=== PATIENT | male | born 1960 | race Hispanic/Latino ===

== ENCOUNTER 2019-11-02 22:15 | Observation (INO) | payer OTHER ==
--- NOTE | 2019-11-02 22:20 | Emergency Department Report ---
HPI - General Time Seen by Provider: 11/02/19 22:18 - HPI HPI: Charge nurse triage --> 21 The patient is a 59-year-old male present with a chief complaint of left-sided numbness and weakness. The patient states that 20: 00 he was at rest when he developed numbness in the left upper extremity. The patient states he got up and shook his arm and the symptoms resolved. The patient states at 21: 00 the numbness in the left arm returned in addition to numbness in the left face and left lower extremity. Patient states he had difficulty raising his left arm above his head ED Past Medical Hx - Past Medical History Hx Hypertension: Yes (No meds) - Surgical History Past Surgical History?: No - Family History Family history: no significant - Social History Smoking Status: Current Every Day Smoker Substance Use Type: None (Denies illicit drug use), Alcohol ED Review of Systems ROS: Stated complaint: POSS STROKE Other details as noted in HPI Constitutional: no symptoms reported Eyes: denies: eye pain ENT: denies: throat pain Respiratory: no symptoms reported Cardiovascular: denies: chest pain Endocrine: no symptoms reported Gastrointestinal: denies: nausea, vomiting Musculoskeletal: denies: back pain Neurological: weakness, numbness. denies: headache Physical Exam - Physical Exam Physical Exam: GENERAL: The patient is well-developed well-nourished male lying on stretcher not appearing to be in acute distress. [] HEENT: Normocephalic. Atraumatic. Extraocular motions are intact. Patient has moist mucous membranes. NECK: Supple. Trachea midline CHEST/LUNGS: There is no respiratory distress noted. HEART/CARDIOVASCULAR: Regular. There is no tachycardia. There is no gallop rub or murmur. ABDOMEN: Abdomen is soft, nontender. Patient has normal bowel sounds. There is no abdominal distention. SKIN: There is no rash. There is no edema. There is no diaphoresis. NEURO: The patient is awake, alert, and oriented. The patient is cooperative. Cranial nerves II through XII grossly intact. The patient has normal speech MUSCULOSKELETAL: There is no evidence of acute injury. ED Course - Consultations Consultation #1: 11/02/19 22:33 Case discussed with [id number] admission to the hospital for CVA/TIA work-up. Does not recommend TPA or CT angiogram ED Medical Decision Making - Lab Data Result diagrams: 11/02/19 22:33 11/02/19 22:33 Laboratory Tests 11/02/19 11/02/19 11/02/19 22:33 22:33 22:33 WBC 8.0 RBC 5.23 H Hgb 16.4 H Hct 48.5 H MCV 93 MCH 31 MCHC 34 RDW 13.9 Plt Count 292 Lymph % (Auto) 47.3 H Petroleum % (Auto) 7.9 H Eos % (Auto) 2.5 Baso % (Auto) 1.0 Lymph # 3.8 Petroleum # 0.6 Eos # 0.2 Baso # 0.1 Seg Neutrophils % 41.3 Seg Neutrophils # 3.3 PT 12.2 INR 0.90 APTT 25.9 Thrombin Time Sodium 142 Potassium 4.7 Chloride 103.0 Carbon Dioxide 27 Anion Gap 17 BUN 12 Creatinine 1.1 Estimated GFR > 60 BUN/Creatinine Ratio 11 Glucose 109 H Calcium 9.3 Troponin T < 0.010 11/02/19 22:33 WBC RBC Hgb Hct MCV MCH MCHC RDW Plt Count Lymph % (Auto) Petroleum % (Auto) Eos % (Auto) Baso % (Auto) Lymph # Petroleum # Eos # Baso # Seg Neutrophils % Seg Neutrophils # PT INR APTT Thrombin Time 16.5 Sodium Potassium Chloride Carbon Dioxide Anion Gap BUN Creatinine Estimated GFR BUN/Creatinine Ratio Glucose Calcium Troponin T - EKG Data -: EKG Interpreted by Me EKG shows normal: sinus rhythm Rate: normal - EKG Data When compared to previous EKG there are: previous EKG unavailable Interpretation: other (No ischemic changes seen) - Radiology Data Radiology results: report reviewed (CT head) CT head (read by radiologist)-no acute intracranial abnormality - Differential Diagnosis CVA Critical care attestation.: If time is entered above; I have spent that time in minutes in the direct care of this critically ill patient, excluding procedure time. ED Disposition Clinical Impression: TIA (transient ischemic attack) Disposition: [id number] OP ADMIT IP TO THIS HOSP Is pt being admited?: Yes Does the pt Need Aspirin: Yes Condition: Fair Referrals: PRIMARY CARE, [Primary Care Provider] - 3-5 Days Time of Disposition: 23:37 (Hospitalist paged (Dr Quesada))
[2019-11-02] MEDS ORDERED: cloNIDine 0.2 MG TAB PO ONE (22:36)
--- NOTE | 2019-11-02 22:38 | Cat Scan Report ---
CT head/brain wo con INDICATION / CLINICAL INFORMATION: MAIN: STROKE ALERT. LT ARM WEAKNESS. [phone]. TECHNIQUE: All CT scans at this location are performed using CT dose reduction for ALARA by means of automated e xposure control. COMPARISON: None available. FINDINGS: No acute intracranial hemorrhage or abnormal extra-axial fluid collection. No evidence of territorial infarction or mass effect. The ventricular system and basilar cisterns are normal. A small retention cyst is seen in the floor the left maxillary sinus. No bony abnormalities. IMPRESSION: 1. No acute intracranial abnormality. COMMUNICATION: Time of Communication: 2131 hours Licensed Practitioner Receiving Report: Signer Name: León Ardon MD Signed: 11/02/2019 10:34 PM Workstation Name: [id number]
[2019-11-02] MEDS ORDERED: ASPIRIN 325 MG TAB PO ONE (22:40)
[2019-11-02 23:10] LABS: Basophils # (Auto) 0.1 K/mm3 (0.0-0.1); Eosinophils # (Auto) 0.2 K/mm3 (0.0-0.4); Eosinophils % (Auto) 2.5 % (0.0-4.3); Hematocrit 48.5 % (35.5-45.6); Hemoglobin 16.4 gm/dl (11.8-15.2); Lymphocytes # (Auto) 3.8 K/mm3 (1.2-5.4); Lymphocytes % (Auto) 47.3 % (13.4-35.0); Mean Corpuscular HGB Conc 34 % (32-34); Mean Corpuscular Volume 93 fl (84-94); Monocytes # (Auto) 0.6 K/mm3 (0.0-0.8); Monocytes % (Auto) 7.9 % (0.0-7.3); Platelet Count 292 K/mm3 (140-440); Red Blood Count 5.23 M/mm3 (3.65-5.03); Red Cell Distribution Width 13.9 % (13.2-15.2)
[2019-11-02 23:25] LABS: BUN/Creatinine Ratio 11; Blood Urea Nitrogen 12 mg/dL (9-20); Calcium 9.3 mg/dL (8.4-10.2); Hemolysis Index 13
[2019-11-02 23:32] LABS: INR 0.9 (0.87-1.13)
[2019-11-02 23:33] LABS: Partial Thromboplastin Time 25.9 Sec. (24.2-36.6)
--- NOTE | 2019-11-02 23:58 | Emergency Department Report ---
ED Neuro Deficit HPI - General Chief Complaint: Neuro Symptoms/Deficit Stated Complaint: POSS STROKE Time Seen by Provider: 11/02/19 22:18 Source: EMS Mode of arrival: Ambulatory Limitations: No Limitations - History of Present Illness Initial Comments: [facility] Date of Service: 11/02/2019 22:06:24 Impression: RO Acute Ischemic Stroke Comments: acute, transient L sided numbness/weakness - concerning for right frontal vs subcortical TIA. Recommend admission for stroke workup. Mechanism of Stroke: Possible Thromboembolic Possible Cardioembolic Small Vessel Disease Metrics: Last Known Well: 11/02/2019 20:30:00 [facility] Notification Time: 11/02/2019 22:05:43 Arrival Time: 11/02/2019 22:15:00 Stamp Time: 11/02/2019 22:06:24 Time First Login Attempt: 11/02/2019 22:14:31 Video Start Time: 11/02/2019 22:14:31 Symptoms: L sided numbness NIHSS Start Assessment Time: 11/02/2019 22:26:53 Patient is not a candidate for tPA. Patient was not deemed candidate for tPA thrombolytics because of Resolved symptoms. Video End Time: 11/02/2019 22:32:24 CT head showed no acute hemorrhage or acute core infarct. CT head was reviewed. Clinical Presentation is not Suggestive of Large Vessel Occlusive Disease, Patient is not a Candidate for Thrombectomy ED Physician notified of diagnostic impression and management plan on 11/02/2019 22:33:04 Our recommendations are outlined below. Recommendations: Activate Stroke Protocol Admission/Order Set Stroke/Telemetry Floor Neuro Checks Bedside Swallow Eval DVT Prophylaxis IV Fluids, Normal Saline Head of Bed Below 30 Degrees Euglycemia and Avoid Hyperthermia (PRN Acetaminophen) start ASA if CT head is neg for hemorrhage. Recommended Scan: MRI Head MRA Head and Neck Without Contrast When Available - Stroke Protocol Lipid Panel to Be Obtained, if Not Done in the Last Three Months Therapies: Physical Therapy, Occupational Therapy, Speech Therapy Assessment When Applicable Dysphaghia Screen: Swallow Evaluation, Bedside NPO Until Swallow Evaluation DVT prophylaxis: Lovenox or LMW Heparin Disposition: Follow up with Teleneurology Follow up Sign Out: Discussed with Emergency Department Provider History of Present Illness: Patient is a 59 year old Male. Patient was brought by EMS for symptoms of L sided numbness 59 yo man with acute onset L face/arm/leg numbness starting at approx 2030. He notes that his left arm was slightly weak, but it is currently improved. He also describes slurred speech, which is improved. No blood thinners. CT head showed no acute hemorrhage or acute core infarct. CT head was reviewed. Examination: 1A: Level of Consciousness - Alert; keenly responsive + 0 1B: Ask Month and Age - Both Questions Right + 0 1C: Blink Eyes & Squeeze Hands - Performs Both Tasks + 0 2: Test Horizontal Extraocular Movements - Normal + 0 3: Test Visual Cosme - No Visual Loss + 0 4: Test Facial Palsy (Use Grimace if Obtunded) - Minor paralysis (flat nasolabial fold, smile asymmetry) + 1 5A: Test Left Arm Motor Drift - No Drift for 10 Seconds + 0 5B: Test Right Arm Motor Drift - No Drift for 10 Seconds + 0 6A: Test Left Leg Motor Drift - No Drift for 5 Seconds + 0 6B: Test Right Leg Motor Drift - No Drift for 5 Seconds + 0 7: Test Limb Ataxia (FNF/Heel-Hyatt) - No Ataxia + 0 8: Test Sensation - Normal; No sensory loss + 0 9: Test Language/Aphasia - Normal; No aphasia + 0 10: Test Dysarthria - Normal + 0 11: Test Extinction/Inattention - No abnormality + 0 NIHSS Score: 1 Patient was informed the Neurology Consult would happen via TeleHealth consult by way of interactive audio and video telecommunications and consented to receiving care in this manner. Due to the immediate potential for life-threatening deterioration due to underlying acute neurologic illness, I spent 35 minutes providing critical care. This time includes time for face to face visit via telemedicine, review of medical records, imaging studies and discussion of findings with providers, the patient and/or family. Dr Delon Morel [facility] Case [id number] - Related Data Allergies/Adverse Reactions: Allergies Allergy/AdvReac Type Severity Reaction Status Date / Time Unable to Assess Allergy Unverified 11/02/19 22:17 ED Review of Systems ROS: Stated complaint: POSS STROKE Other details as noted in HPI Constitutional: no symptoms reported Eyes: denies: eye pain ENT: denies: throat pain Respiratory: no symptoms reported Cardiovascular: denies: chest pain Endocrine: no symptoms reported Gastrointestinal: denies: nausea, vomiting Musculoskeletal: denies: back pain Neurological: weakness, numbness. denies: headache ED Past Medical Hx - Past Medical History Hx Hypertension: Yes (No meds) - Surgical History Past Surgical History?: No - Social History Smoking Status: Current Every Day Smoker Substance Use Type: None (Denies illicit drug use), Alcohol ED Neuro Physical Exam - General Limitations: No Limitations Suspected Stroke: Yes - NIHSS Assessment Interval: Baseline 1a. Level of Consciousness: alert/keenly responsive 1b. LOC Questions: answers both correctly 1c. LOC Commands: performs tasks correctly 2. Best Gaze: normal 3. Visual: no visual loss 4. Facial Palsy: minor paralysis 5b. Motor Arm Right: no drift 5a. Motor Arm Left: no drift 6a. Motor Leg Left: no drift 6b. Motor Leg Right: no drift 7. Limb Ataxia: absent 8. Sensory: normal 9. Best Language: no aphasia 10. Dysarthria: normal 11. Extinction/Inattention: no abnormality Total Score: 1 Stroke Severity: Minor Stroke ED Course Vital Signs 11/02/19 11/02/19 22:41 22:48 Temperature 98 F Pulse Rate 80 83 Respiratory 14 Rate Blood Pressure 199/98 Blood Pressure 221/121 [Left] O2 Sat by Pulse 98 Oximetry - Lab Data Result diagrams: 11/02/19 22:33 11/02/19 22:33 Lab Results 11/02/19 11/02/19 11/02/19 Range/Units 22:33 22:33 22:33 WBC 8.0 (4.5-11.0) K/mm3 RBC 5.23 H (3.65-5.03) M/mm3 Hgb 16.4 H (11.8-15.2) gm/dl Hct 48.5 H (35.5-45.6) % MCV 93 (84-94) fl MCH 31 (28-32) pg MCHC 34 (32-34) % RDW 13.9 (13.2-15.2) % Plt Count 292 (140-440) K/mm3 Lymph % (Auto) 47.3 H (13.4-35.0) % Braxton % (Auto) 7.9 H (0.0-7.3) % Eos % (Auto) 2.5 (0.0-4.3) % Baso % (Auto) 1.0 (0.0-1.8) % Lymph # 3.8 (1.2-5.4) K/mm3 Braxton # 0.6 (0.0-0.8) K/mm3 Eos # 0.2 (0.0-0.4) K/mm3 Baso # 0.1 (0.0-0.1) K/mm3 Seg Neutrophils % 41.3 (40.0-70.0) % Seg Neutrophils # 3.3 (1.8-7.7) K/mm3 PT 12.2 (12.2-14.9) Sec. INR 0.90 (0.87-1.13) APTT 25.9 (24.2-36.6) Sec. Thrombin Time (15.1-19.6) Sec. Sodium 142 (137-145) mmol/L Potassium 4.7 (3.6-5.0) mmol/L Chloride 103.0 (98-107) mmol/L Carbon Dioxide 27 (22-30) mmol/L Anion Gap 17 mmol/L BUN 12 (9-20) mg/dL Creatinine 1.1 (0.8-1.5) mg/dL Estimated GFR > 60 ml/min BUN/Creatinine Ratio 11 % Glucose 109 H (75-100) mg/dL Calcium 9.3 (8.4-10.2) mg/dL Troponin T < 0.010 (0.00-0.029) ng/mL 11/02/19 Range/Units 22:33 WBC (4.5-11.0) K/mm3 RBC (3.65-5.03) M/mm3 Hgb (11.8-15.2) gm/dl Hct (35.5-45.6) % MCV (84-94) fl MCH (28-32) pg MCHC (32-34) % RDW (13.2-15.2) % Plt Count (140-440) K/mm3 Lymph % (Auto) (13.4-35.0) % Braxton % (Auto) (0.0-7.3) % Eos % (Auto) (0.0-4.3) % Baso % (Auto) (0.0-1.8) % Lymph # (1.2-5.4) K/mm3 Braxton # (0.0-0.8) K/mm3 Eos # (0.0-0.4) K/mm3 Baso # (0.0-0.1) K/mm3 Seg Neutrophils % (40.0-70.0) % Seg Neutrophils # (1.8-7.7) K/mm3 PT (12.2-14.9) Sec. INR (0.87-1.13) APTT (24.2-36.6) Sec. Thrombin Time 16.5 (15.1-19.6) Sec. Sodium (137-145) mmol/L Potassium (3.6-5.0) mmol/L Chloride (98-107) mmol/L Carbon Dioxide (22-30) mmol/L Anion Gap mmol/L BUN (9-20) mg/dL Creatinine (0.8-1.5) mg/dL Estimated GFR ml/min BUN/Creatinine Ratio % Glucose (75-100) mg/dL Calcium (8.4-10.2) mg/dL Troponin T (0.00-0.029) ng/mL Critical care attestation.: If time is entered above; I have spent that time in minutes in the direct care of this critically ill patient, excluding procedure time. ED Disposition Clinical Impression: TIA (transient ischemic attack) Disposition: OP ADMIT IP TO THIS HOSP Is pt being admited?: Yes Condition: Fair Referrals: PRIMARY CARE, [Primary Care Provider] - 3-5 Days
[2019-11-03] MEDS ORDERED: METOCLOPRAMIDE 10 MG TAB PO PRN (00:44)
[2019-11-03] MEDS ORDERED: PROMETHAZINE 25 MG RECT SUPP PR PRN (00:44)
[2019-11-03] MEDS ORDERED: ONDANSETRON 4 MG/2 ML INJ IV PRN ×2 (00:44)
[2019-11-03] MEDS ORDERED: MORPHINE 2 MG/1 ML INJ IV PRN ×2 (00:44)
[2019-11-03] MEDS ORDERED: ACETAMINOPHEN 325 MG TAB PO PRN ×2 (00:44)
[2019-11-03] MEDS ORDERED: MAGNESIUM HYDROXIDE (MOM) ORAL LIQD UDC PO PRN ×2 (00:44)
--- NOTE | 2019-11-03 02:17 | History and Physical Report ---
History of Present Illness Date of examination: 11/03/19 Date of admission: 11/02/19 23:39 Chief complaint: Left sided weakness History of present illness: 59-year-old male with known history of hypertension presenting to the emergency room today complaining of left upper left lower extremity weakness and numbness which started earlier today. Patient states that was lying down when he started having some numbness and weakness in the left upper extremity and left lower extremity. He got up and shook his hand and leg and felt relieved. He denies any headache or dizziness, no blurry vision, no difficulty with speech or swallowing, no fever or chills. No nausea or vomiting. He however admits that he has not been quite compliant with his blood pressure medication. He also admits that he drinks alcohol daily and also smokes about a pack of cigarette daily. He has not had this type of symptom in the past. He also noticed a mild facial asymmetry today. Work-up in the emergency room including CT scan of the head did not reveal any acute abnormality. He was evaluated by the teleneurologist and was determined not to be a TPA candidate. However patient is to be admitted for further work- up for possible CVA. Past History Past Medical History: hypertension Past Surgical History: No surgical history Social history: smoking (One pack per day), alcohol abuse (6 beers daily) Family history: no significant family history Medications and Allergies Allergies Allergy/AdvReac Type Severity Reaction Status Date / Time Unable to Assess Allergy Unverified 11/02/19 22:17 Active Meds: Active Medications Acetaminophen (Tylenol) 650 mg PO Q4H PRN PRN Reason: Pain MILD(1-3)/Fever >100.5/CHO Aspirin (Aspirin) 325 mg PO QDAY CARYN Bisacodyl (Dulcolax) 10 mg NH QDAY PRN PRN Reason: Constipation Magnesium Hydroxide (Milk Of Magnesia) 30 ml PO Q4H PRN PRN Reason: Constipation Metoclopramide HCl (Reglan) 10 mg PO Q6H PRN PRN Reason: Nausea And Vomiting Morphine Sulfate (Morphine) 2 mg IV Q4H PRN PRN Reason: Pain, Moderate (4-6) Ondansetron HCl (Zofran) 4 mg IV Q8H PRN PRN Reason: Nausea And Vomiting Promethazine HCl (Phenergan) 25 mg NH Q6H PRN PRN Reason: Nausea And Vomiting Sodium Chloride (Sodium Chloride Flush Syringe 10 Ml) 10 ml IV BID CARYN Sodium Chloride (Sodium Chloride Flush Syringe 10 Ml) 10 ml IV PRN PRN PRN Reason: LINE FLUSH Review of Systems Constitutional: no fever, no chills Cardiovascular: no chest pain, no syncope Respiratory: no cough, no shortness of breath Gastrointestinal: no nausea, no vomiting, no diarrhea Genitourinary Male: no dysuria, no hematuria Musculoskeletal: no neck pain, no low back pain Integumentary: no rash, no pruritis Neurological: weakness, numbness (On left upper and lower extremity), no headaches, no change in mentation Exam - Constitutional Vitals: Temp Pulse Resp BP Pulse Ox 98 F 71 14 167/95 97 11/02/19 22:41 11/02/19 23:45 11/02/19 23:45 11/02/19 23:45 11/02/19 23:45 General appearance: Present: no acute distress, well-nourished - EENT Eyes: Present: PERRL, EOM intact ENT: hearing intact, clear oral mucosa, dentition normal - Neck Neck: Present: supple, normal ROM - Respiratory Respiratory effort: normal Respiratory: bilateral: CTA - Cardiovascular Rhythm: regular Heart Sounds: Present: S1 & S2 - Extremities Extremities: no ischemia, pulses intact, No edema, Full ROM Peripheral Pulses: within normal limits - Abdominal General gastrointestinal: Present: soft, non-tender, non-distended - Integumentary Integumentary: Present: clear, warm, dry - Musculoskeletal Musculoskeletal: strength equal bilaterally - Psychiatric Psychiatric: appropriate mood/affect, intact judgment & insight, cooperative - Neurologic Neurologic: CNII-XII intact, moves all extremities (Mild weakness on the left upper and left lower extremity), other (Mild facial asymmetry with left-sided facial droop.) Results - Labs CBC & Chem 7: 11/02/19 22:33 11/02/19 22:33 Labs: Abnormal lab results 11/02/19 11/02/19 Range/Units 22:33 22:33 RBC 5.23 H (3.65-5.03) M/mm3 Hgb 16.4 H (11.8-15.2) gm/dl Hct 48.5 H (35.5-45.6) % Lymph % (Auto) 47.3 H (13.4-35.0) % [place]ug[place] % (Auto) 7.9 H (0.0-7.3) % Glucose 109 H (75-100) mg/dL Assessment and Plan - Patient Problems (1) TIA (transient ischemic attack) Current Visit: Yes Status: Acute Plan to address problem: Patient admitted and will be worked up for CVA. Will start patient on daily aspirin. Patient will be scheduled for carotid Doppler and MRI of the brain. We will place consult to neurology for further evaluation and recommendation. (2) Hypertension Current Visit: Yes Status: Acute Plan to address problem: We will resume routine home medications once reconciled monitor vital signs closely. (3) Tobacco abuse Current Visit: Yes Status: Acute Plan to address problem: Counseled on quitting tobacco use. We will offer nicotine patch as needed. (4) Alcohol abuse Current Visit: Yes Status: Acute Plan to address problem: Counseled on quitting alcohol abuse. Patient will be closely monitored for alcohol withdrawal symptoms. (5) DVT prophylaxis Current Visit: Yes Status: Acute Plan to address problem: Placed on subcutaneous heparin. (6) Full code status Current Visit: Yes Status: Acute
[2019-11-03] MEDS: HEPARIN 5,000 UNIT/1 ML VIAL SUB-Q SCH ×2 (06:19→13:58)
[2019-11-03] MEDS ORDERED: hydrALAZINE 20 MG/1 ML INJ IV PRN (06:21)
[2019-11-03] MEDS ORDERED: LORazepam 2 MG/ML VIAL IV NR (09:37)
--- NOTE | 2019-11-03 09:44 | Vascular Lab Report ---
TECHNICAL DATA: Imaging was performed from the base of the neck to the skull base using duplex sonography and color-f low imaging with emphasis on the carotid and vertebral arterial systems. RIGHT CAROTID ARTERY: The right internal carotid artery, right external carotid, and right common carotid artery all well i inocencia and patent. Mild atherosclerotic plaque present at the carotid bifurcation. Right common carotid artery peak systolic velocity 83.6 centimeters per second Right internal carotid artery peak systolic velocity 87.4 cm/sec Right internal carotid artery end diastolic velocity 36.6 cm/sec Right internal carotid artery/right common carotid artery ratio 1.05 Vertebral artery flow is antegrade. LEFT CAROTID ARTERY The left internal carotid artery, left external carotid, and left common carotid artery all well imag ed and patent. Mild atherosclerotic plaque present at the carotid bifurcation. Left common carotid artery peak systolic velocity 66.8 cm/sec Left internal carotid artery peak systolic velocity 75.7 cm/s Left internal carotid artery end diastolic velocity 22.6 cm/s Left internal carotid artery/right common carotid artery ratio 1.13 Normal antegrade flow of the vertebral arteries. IMPRESSION: 1. A 0 to15% diameter reduction internal carotid arteries. 2. Normal common carotid arteries. 3. Normal external carotid arteries. 4. Antegrade flow both vertebral arteries. Sonographic NASCET Index This study proposed the incorporation of distal ICA flow velocity information on the conventional car otid Doppler study improving the diagnostic accuracy of PSV 1. * <15% stenosis: * deceleration spectral broadening with a peak systolic velocity (PSV) <125 cm per second * 16-49% stenosis: * pansystolic spectral broadening with a PSV <125 cm/s * 50-69% stenosis: * pansystolic spectral broadening with a PSV of >125 cm/s * and * end diastolic velocity (EDV) <110 cm/s or ICA/CCA PSV ratio >2 but <4 * 70-79% stenosis: * pansystolic spectral broadening with PSV >270 cm/s * or * EDV >110 cm/s * or * ICA/CCA PSV ratio >4 * 80-99% stenosis: EDV >140 cm/s * complete occlusion: no flow; terminal thump Signer Name: Tim Marshall MD Signed: 11/03/2019 9:39 AM Workstation Name: [id number]
[2019-11-03] MEDS ORDERED: ASPIRIN 325 MG TAB PO SCH (10:00)
[2019-11-03] MEDS ORDERED: LORazepam 2 MG/ML VIAL IV ONE (14:00)
--- NOTE | 2019-11-03 15:58 | Magnetic Resonance Report ---
MRI BRAIN WITHOUT CONTRAST INDICATION / CLINICAL INFORMATION: stroke. Left-sided weakness TECHNIQUE: Multiplanar, multisequence MR images of the brain were obtained. COMPARISON: Head CT 11/02/2019 FINDINGS: BRAIN / INTRACRANIAL CONTENTS: There is a 10 x 15 mm diameter area of restricted diffusion in the right richter radiata compatible wi th subacute infarction. Correlating decreased signal intensity is seen on ADC map images. Subtle hype rintensities observed in this same distribution on FLAIR and T2-weighted sequences. There is no indic ation of hemorrhagic transformation. Ventricles and cortical sulci are normal in size and configuration. There is no mass effect. No evide nce of intracranial hemorrhage or extra-axial fluid collection is seen. Periventricular and deep whit e matter hyperintensities are noted consistent with microvascular ischemic changes. Fairly extensivel y dilated perivascular spaces are noted. These are present in a ganglia capsular distribution as well as within the white matter of both cerebral hemispheres. The brainstem and cerebellum have an unremarkable appearance. CRANIOCERVICAL JUNCTION: No abnormalities are identified at the craniocervical junction. VASCULAR FLOW-VOIDS: Normal flow-voids are present within the major intracranial vessels. ORBITS: The orbits have an unremarkable appearance. SINUSES / MASTOIDS: There is no indication of inflammatory disease in the paranasal sinuses. Inflamma tory changes are seen within the air cells the right mastoid tip. IMPRESSION: 1. Subacute, small deep infarction involving the right richter radiata. Signer Name: Azam Deleon MD Signed: 11/03/2019 3:54 PM Workstation Name: [id number]
--- NOTE | 2019-11-03 16:44 | Discharge Summary ---
Providers - Providers Date of Admission: 11/02/19 23:39 Date of discharge: 11/03/19 Attending physician: RICKEY MURILLO 11/03/19 00:44 Consult to Dietitian/Nutrition [CONS] Routine Physician Instructions: Reason For Exam: Reason for Consult: Nutrition Recommendations Reason for Consult: Diet education Consult to Physician [CONS] Routine Comment: Consulting Provider: KEYSHA HERRING Physician Instructions: Reason For Exam: left sided weakness Occupational Therapy Evaluate and Treat [CONS] Routine Comment: Reason For Exam: Neuro deficits Physical Therapy Evaluation and Treat [CONS] Routine Comment: Reason For Exam: Neuro deficits Primary care physician: RN BURN Hospitalization Condition: Fair Hospital course: Discharge diagnosis: /TIA (transient ischemic attack) with subacute CVA daily aspirin, outpt neurology follow up MRI brain: 1. Subacute, small deep infarction involving the right richter radiata. / Hypertension, accelerated resume routine home medications / Tobacco abuse Counseled on quitting tobacco use. We will offer nicotine patch as needed. / Alcohol abuse Counseled on quitting alcohol abuse. Patient will be closely monitored for alcohol withdrawal symptoms. / DVT prophylaxis Placed on subcutaneous heparin. / Full code status Current Visit: Yes Status: Acute Time spent for discharge: 34 minutes Core Measure Documentation - Palliative Care Palliative Care/ Comfort Measures: Not Applicable - Core Measures Any of the following diagnoses?: none Exam - Constitutional Vitals: Temp Pulse Resp BP Pulse Ox 98.1 F 87 18 188/100 97 11/03/19 16:18 11/03/19 16:31 11/03/19 16:18 11/03/19 16:31 11/03/19 12:29 General appearance: Present: no acute distress, well-nourished - EENT Eyes: Present: PERRL ENT: hearing intact, clear oral mucosa - Neck Neck: Present: supple, normal ROM - Respiratory Respiratory effort: normal Respiratory: bilateral: CTA - Cardiovascular Heart Sounds: Present: S1 & S2. Absent: rub, click - Extremities Extremities: pulses symmetrical, No edema Peripheral Pulses: within normal limits - Abdominal General gastrointestinal: Present: soft, non-tender, non-distended, normal bowel sounds - Integumentary Integumentary: Present: clear, warm, dry - Musculoskeletal Musculoskeletal: gait normal, strength equal bilaterally - Psychiatric Psychiatric: appropriate mood/affect, intact judgment & insight - Neurologic Neurologic: CNII-XII intact, moves all extremities Plan Activity: advance as tolerated Weight Bearing Status: Weight Bear as Tolerated Diet: low fat, low salt Follow up with: PRIMARY CARE, [Primary Care Provider] - 3-5 Days Prescriptions: AtorvaSTATin [Lipitor] 40 mg PO QHS #30 tab amLODIPine 10 mg PO QDAY #30 tablet Aspirin [Aspirin BABY CHEW TAB] 81 mg PO QDAY #30 tab.chew Metoprolol [Lopressor TAB] 50 mg PO BID #60 tablet
[2019-11-03] MEDS ORDERED: METOPROLOL TARTRATE 50 MG TAB PO SCH (16:45)
[2019-11-03] MEDS ORDERED: amLODIPine 10 MG TAB PO SCH (17:00)
--- NOTE | 2019-11-03 17:45 | Consultation ---
History of Present Illness Consult date: 11/03/19 Reason for Consult: Left-sided weakness and numbness Chief complaint: Left-sided weakness and numbness History of present illness: Patient is a 59-year-old man with a history of hypertension. He reportedly is not compliant with his medications. He presented yesterday with symptoms of left-sided numbness which was first noted at 8 PM during a nap. This improved, however returned around 9 PM, and was also noted to have weakness on the left side. He also noticed that the numbness progressed from the left arm down to the left leg. [facility] He was evaluated by tele-neurology, however was felt to be outside of the TPA window. Patient states that today his numbness has improved, however he continues to experience left-sided weakness. Past History Past Medical History: hypertension Past Surgical History: No surgical history Social history: smoking (One pack per day), alcohol abuse (6 beers daily) Family history: no significant family history Medications and Allergies Allergies Allergy/AdvReac Type Severity Reaction Status Date / Time No Known Allergies Allergy Unverified 11/03/19 10:40 Home Medications Medication Instructions Recorded Confirmed Last Taken Type Aspirin [Aspirin BABY CHEW TAB] 81 mg PO QDAY #30 tab.chew 11/03/19 Unknown Rx AtorvaSTATin [Lipitor] 40 mg PO QHS #30 tab 11/03/19 Unknown Rx Metoprolol [Lopressor TAB] 50 mg PO BID #60 tablet 11/03/19 Unknown Rx amLODIPine 10 mg PO QDAY #30 tablet 11/03/19 Unknown Rx Active Meds: Active Medications Acetaminophen (Tylenol) 650 mg PO Q4H PRN PRN Reason: Pain MILD(1-3)/Fever >100.5/CHO Amlodipine Besylate (Amlodipine) 10 mg PO QDAY [facility] Last Admin: 11/03/19 17:32 Dose: 10 mg Documented by: Aspirin (Aspirin) 325 mg PO QDAY [facility] Last Admin: 11/03/19 10:17 Dose: 325 mg Documented by: Bisacodyl (Dulcolax) 10 mg MA QDAY PRN PRN Reason: Constipation Heparin Sodium (Porcine) (Heparin) 5,000 unit SUB-Q Q8HR [facility] Last Admin: 11/03/19 13:58 Dose: 5,000 unit Documented by: Hydralazine HCl (Apresoline) 10 mg IV Q4HR PRN PRN Reason: Blood Pressure Last Admin: 11/03/19 16:31 Dose: 10 mg Documented by: Magnesium Hydroxide (Milk Of Magnesia) 30 ml PO Q4H PRN PRN Reason: Constipation Metoclopramide HCl (Reglan) 10 mg PO Q6H PRN PRN Reason: Nausea And Vomiting Metoprolol Tartrate (Metoprolol) 50 mg PO BID [facility] Last Admin: 11/03/19 17:31 Dose: 50 mg Documented by: Morphine Sulfate (Morphine) 2 mg IV Q4H PRN PRN Reason: Pain, Moderate (4-6) Ondansetron HCl (Zofran) 4 mg IV Q8H PRN PRN Reason: Nausea And Vomiting Promethazine HCl (Phenergan) 25 mg MA Q6H PRN PRN Reason: Nausea And Vomiting Sodium Chloride (Sodium Chloride Flush Syringe 10 Ml) 10 ml IV BID [facility] Last Admin: 11/03/19 10:17 Dose: 10 ml Documented by: Sodium Chloride (Sodium Chloride Flush Syringe 10 Ml) 10 ml IV PRN PRN PRN Reason: LINE FLUSH Review of Systems All systems: negative Neurological: weakness, numbness Physical Examination - Vital Signs Vital Signs: Vital Signs Temp Pulse Resp BP Pulse Ox 98 F 80 14 221/121 98 11/02/19 22:41 11/02/19 22:41 11/02/19 22:41 11/02/19 22:41 11/02/19 22:41 - Physical Exam Narrative exam: Patient is alert, awake, oriented x4, follows complex commands. PERRL, EOMI, VF F, tongue midline, bilaterally intact to LT, no facial weakness noted. 4/5 in LUE/LLE, 5/5 in RUE/RLE. Bilaterally intact light touch. Bilaterally intact to FTN and HTS. 2+ reflexes throughout. - Constitutional General appearance: comfortable - EENT EENT: Present: ATNC, PERRL, mucous membranes moist, hearing intact, vision intact - Respiratory Respiratory: Present: lungs clear, normal breath sounds - Cardiovascular Cardiovascular: Present: regular rate, normal S1, normal S2 Extremities: Present: no clubbing, cyanosis, no inflammation - Gastrointestinal Gastrointestinal: Present: normoactive bowel sounds, soft, non-tender - Integumentary Integumentary: Present: normal - Musculoskeletal Musculoskeletal: Present: no fluid collection, no pain - Psychiatric Psychiatric: Present: mood/affect appropriate - Level of Consciousness 1a. Level of Consciousness: alert/keenly responsive - LOC Questions 1b. LOC Questions: answers both correctly - LOC Command 1c. LOC Commands: performs tasks correctly - Best Gaze 2. Best Gaze: normal - Visual 3. Visual: no visual loss - Facial Palsy 4. Facial Palsy: normal symmetrical movement - Motor Arm 5a. Motor Arm Left: drift 5b. Motor Arm Right: no drift - Motor Leg 6a. Motor Leg Left: no drift 6b. Motor Leg Right: no drift - Limb Ataxia 7. Limb Ataxia: absent - Sensory 8. Sensory: normal - Best Language 9. Best Language: no aphasia - Dysarthria 10. Dysarthria: normal - Extinction and Inattention 11. Extinction/Inattention: no abnormality - Scoring Total Score: 1 Stroke Severity: Minor Stroke Results - Laboratory Findings CBC and BMP: 11/02/19 22:33 11/02/19 22:33 Abnormal Lab Findings: Abnormal Labs 11/02/19 11/02/19 22:33 22:33 RBC 5.23 H Hgb 16.4 H Hct 48.5 H Lymph % (Auto) 47.3 H [place] % (Auto) 7.9 H Glucose 109 H Assessment and Plan Patient is a 59-year-old man with a history of hypertension, who presents with left-sided numbness and weakness. According the patient's clinical findings, the patient has had an acute ischemic stroke. Plan: 1. Stroke: - MRI brain: Revealed right subcortical stroke. - CTA head/neck: Pending - CT head: No acute abnormality. - Echo: EF 55 to 60%, LA normal, bubble study negative. - CUS: No significant stenosis. -Recommend dual antiplatelet therapy with aspirin 81 mg daily and Plavix 75 mg daily for 30 days, after which Plavix can be stopped. Discussed risks and benefits of dual antiplatelet therapy, and patient agreed to take this. - Cont. statin. LDL goal <70 - Telemetry monitoring while in house - PT/OT/ST - DVT Ppx: Recommend lovenox -Counseled patient regarding stopping smoking and reducing alcohol intake. 2. Hypertension: - Recommend BP goal of <220/120 to allow for permissive HTN for first 24-48 vasquez rs. Can target normotension after that. - Will continue to monitor patient. Thank you for allowing me to take part in the care of this patient. Max Huntley MD Neurology
--- NOTE | 2019-11-03 20:04 | Cat Scan Report ---
CT angio head INDICATION / CLINICAL INFORMATION: 59 years Male; Stroke. TECHNIQUE: Thin cut axial images obtained through the head during IV bolus contrast administration. S agittal, coronal, and 3 plane MIP reconstructions performed by the technologist. NASCET type criteria used evaluate stenoses. Automated exposure control utilized for radiation reduction purposes. COMPARISON: None available. FINDINGS: INTERNAL CAROTID ARTERIES: Focal areas of narrowing seen in the cavernous and communicating portions of both internal carotid arteries, related to atherosclerotic disease. Most prevalent findings in the posterior genu of the cavernous portion of the left internal carotid artery, where findings certainl y may be hemodynamically significant. The internal carotid arteries are otherwise widely patent. VERTEBROBASILAR SYSTEM: No significant narrowing appreciated. DISTAL BRANCHES: Distal branches of the anterior, middle, and posterior cerebral arteries are fairly symmetric in appearance and number. Focal areas of narrowing seen in the P2 portions of the posterior cerebral arteries where the vessels pass around the brainstem. ANEURYSM: None identified. ADDITIONAL FINDINGS: There is moderate mucosal thickening in the inferior mastoids on the right. Mild to moderate mucosal thickening seen in the ethmoids. Mild to moderate mucosal thickening seen in the left maxillary antrum as well. IMPRESSION: Focal areas of narrowing as described above. No dominant stenosis or vessel occlusion appreciated. Signer Name: Curry Arevalo MD, III Signed: 11/03/2019 8:00 PM Workstation Name: [id number]
[2019-11-03 20:08] VITALS: BP 163/87
--- NOTE | 2019-11-03 20:15 | Cat Scan Report ---
. CT angio neck INDICATION / CLINICAL INFORMATION: 59 years Male; Stroke. TECHNIQUE: Thin cut axial images obtained through the head during IV bolus contrast administration. S agittal, coronal, and 3 plane MIP reconstructions performed by the technologist. NASCET type criteria used evaluate stenoses. All CT scans at this location are performed using CT dose reduction for ALAR A by means of automated exposure control. COMPARISON: None available. FINDINGS: ARCH: Normal aortic arch branching suggested. CAROTID ARTERIES: The visualized common and internal carotid arteries are widely patent. Atherosclero tic disease is seen at the origin of the right internal carotid artery resulting in mild narrowing. S imilar findings seen along the origin of the left internal carotid artery. VERTEBRAL ARTERIES: Codominant vertebral system seen. No significant stenosis appreciated. ADDITIONAL FINDINGS: Mild scoliosis of the cervicothoracic spine seen. Multilevel disc space narrowin g seen in the cervical spine. There is osseous foraminal narrowing on the left at C5-6, C6-7, and C7- T1 related uncinate hypertrophy. Similar findings seen on the right at C5-6. Moderate facet hypertrophy seen on the left at C4-5. Mild to moderate facet hypertrophy seen at other levels as well. Mild mucosal thickening seen in the left maxillary antrum and ethmoids. There is partial opacificatio n of the inferior mastoids on the right. IMPRESSION: No hemodynamically significant stenosis appreciated on this CTA of the neck. Signer Name: Curry Arevalo MD, III Signed: 11/03/2019 8:10 PM Workstation Name: [id number]
[2019-11-04] MEDS ORDERED: ASPIRIN EC 81 MG TAB PO SCH (10:00)
[2019-11-04] MEDS ORDERED: CLOPIDOGREL 75 MG TAB PO SCH (10:00)
== END 2019-11-03 22:07 | disposition home or self-care (01) ==
LOC: ED 22:15 → INTOOBSV 23:39 → 4A 23:39
PROVIDERS: ADMIT Internal Medicine Geriatric Medicine; ATTEND Internal Medicine
DX: G45.9 Transient cerebral ischemic attack, unspecified (principal); I10 Essential (primary) hypertension; F17.210 Nicotine dependence, cigarettes, uncomplicated; F10.10 Alcohol abuse, uncomplicated; Z71.6 Tobacco abuse counseling; Z79.82 Long term (current) use of aspirin; Z79.899 Other long term (current) drug therapy
CPT/HCPCS: 36415; 70450; 70496; 70498; 70551; 80048; 84484; 85025; 85610; 85670; 85730; 93005; 93010; 93306; 93880; 96372; 96374; 96375; 97116; 97161; 99291; 99406; G0378; J0360; J1644; J2060; Q9967; 82962